=== PATIENT | female | born 1960 | race Caucasian/White ===

== ENCOUNTER 2020-12-30 11:04 | Emergency (ER) | payer BC ==
[2020-12-30 12:25] LABS: Absolute Lymphocytes (CBC) 1.4 K/uL (0.7-4.9); Basophils % 0.3 % (0-1.3); Hematocrit 37.9 % (36.0-45.0); MPV 7.8 fL (7.6-11.3); RBC Red Blood Cell Count 4.02 M/uL (3.86-4.86)
[2020-12-30 12:46] LABS: ALT/SGPT 35 U/L (12-78); AST/SGOT 17 U/L (15-37); Albumin 4.2 g/dL (3.4-5.0); Alkaline Phosphatase 64 U/L (45-117); BUN Blood Urea Nitrogen 16 mg/dL (7-18); Bicarbonate 26 mmol/L (21-32); Bilirubin Direct < 0.1 mg/dL (0-0.2); Bilirubin Total 0.3 mg/dL (0.2-1.0); Glucose Level 95 mg/dL (74-106); Lipase 142 U/L (73-393); Potassium 4.3 mmol/L (3.5-5.1); Protein, Total 7.1 g/dL (6.4-8.2); Sodium Level 138 mmol/L (136-145)
[2020-12-30 13:14] LABS: Urine Blood Negative (Negative); Urine Glucose Negative (Negative); Urine Protein Negative (Negative); Urine Specific Gravity <=1.005 (1.005-1.030); Urine pH 6.5 (5.0-7.0)
--- NOTE | 2020-12-30 13:28 | RAD REPORT ---
EXAM DESCRIPTION: CT - Abdomen Pelvis W Contrast - 12/30/2020 1:11 pm CLINICAL HISTORY: RLQ PAIN COMPARISON: No comparisons TECHNIQUE: Biphasic, helical CT imaging of the abdomen and pelvis was performed following 100 ml non -ionic IV contrast. No oral contrast administered. All CT scans are performed using dose optimization technique as appropriate and may include automated exposure control or mA/KV adjustment according to patient size. FINDINGS: No acute lung base finding. Large hiatal hernia is present with 50-60% of the stomach intr athoracic. No gastric wall thickening or mass suspected. The liver, spleen, and pancreas show no suspicious findings. Gallbladder and biliary tree are also wi thout suspicious finding. Mild bilateral hydronephrosis is present secondary to a subsequently detailed finding. No obstructing calculi seen. Renal function is symmetric but slightly delayed. No pyelonephritis or solid mass lesi on. No bladder abnormalities. No adrenal abnormalities. History does not indicate hysterectomy. Left hip prosthesis creates substantial spray artifact across the pelvic floor. Soft tissue mass is seen typical in size and shape for the uterus in a patient thi s age. A small atrophic left ovary is identified. No normal right ovary seen. There is a 13 x 11 cent imeter lobulated cystic mass filling the midline pelvis. This has thickened septation and areas of en hancing mural nodule. This could be a single entity from either ovary or the confluence of bilateral ovarian cystic masses. There is a small amount of associated free fluid. No free air or pneumatosis. Moderate stool volume seen throughout nondilated colon. No appendicitis findings. Diverticulosis is p resent on the left. No acute stomach or small bowel finding. No hernia or bulky lymphadenopathy find ings. No suspicious bony findings. IMPRESSION: A 13 x 11 cm lobulated cystic mass fills the pelvis. The mass has multiple septations th at enhance with areas of mural nodularity. Right ovary is not identifiable. Small atrophic left ovary is seen. 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 Cystadenoma is still possible. Mild bilateral hydronephrosis with only minimal if any delayed renal function. This is believed to be due to extrinsic compression by the large cystic pelvic mass. Large hiatal hernia with 50-60% of the stomach intrathoracic. No appendicitis, abscess, free air or other surgically emergent finding.
[2020-12-30 14:05] LABS: Urine Bacteria 20-50 /HPF (<20); Urine RBC <5 /HPF (NONE SEEN)
--- NOTE | 2020-12-30 14:16 | EDPHYS ---
Physician Documentation [facility] Name: Laura Britt Age: 60 yrs Sex: Female : 1960 Arrival Date: 12/30/2020 Time: 11:08 Bed Waiting Private MD: ED Physician Melo Miranda HPI: 12/30 11:59 This 60 yrs old Female presents to ER via Ambulatory with complaints of pm1 Abdominal Pain. 11:59 The patient presents with abdominal pain right lower quadrant. Onset: The pm1 symptoms/episode began/occurred today. The symptoms do not radiate. Associated signs and symptoms: Pertinent positives: nausea, Dizziness dizziness, Pertinent negatives: nausea, vomiting, and diarrhea, chest pain, shortness of breath. The symptoms are described as sharp. Modifying factors: The symptoms are alleviated by nothing, the symptoms are aggravated by nothing. Severity of pain: in the emergency department the pain has resolved. The patient has not experienced similar symptoms in the past. The patient has not recently seen a physician. Patient presents with right lower quadrant pain 2 episodes that started this morning. Patient was standing in line at the bank and started feeling sharp right upper quadrant pain, with nausea and dizziness. No vomiting no diarrhea. On the way here to the ER patient with another episode of abdominal pain that has resolved patient is currently without any pain or any other symptoms. Historical: - Allergies: 11:51 Benadryl; ss - Home Meds: 11:51 None [Active]; ss - PMHx: 11:51 None; ss - PSHx: 11:51 Tonsillectomy; L hip; ss - Immunization history:: Adult Immunizations up to date, Client reports having NOT received the Covid vaccine. - Social history:: Smoking status: Patient reports the use of cigarette tobacco products, smokes one-half pack cigarettes per day. ROS: 11:59 Constitutional: Negative for fever, chills, and weight loss, Cardiovascular: Negative pm1 for chest pain, palpitations, and edema, Respiratory: Negative for shortness of breath, cough, wheezing, and pleuritic chest pain. 11:59 Back: Negative for injury and pain, : Negative for injury, bleeding, discharge, and swelling, MS/Extremity: Negative for injury and deformity, Skin: Negative for injury, rash, and discoloration, Neuro: Negative for headache, weakness, numbness, tingling, and seizure. 11:59 Abdomen/GI: Positive for abdominal pain, Negative for nausea, vomiting, and diarrhea, constipation. 11:59 All other systems are negative. Exam: 11:59 Constitutional: This is a well developed, well nourished patient who is awake, alert, pm1 and in no acute distress. Head/Face: Normocephalic, atraumatic. 11:59 Back: No spinal tenderness. No costovertebral tenderness. Full range of motion. Skin: Warm, dry with normal turgor. Normal color with no rashes, no lesions, and no evidence of cellulitis. MS/ Extremity: Pulses equal, no cyanosis. Neurovascular intact. Full, normal range of motion. 11:59 Cardiovascular: Exam negative for acute changes, Rate: normal, Rhythm: regular, Pulses: no pulse deficits are appreciated. 11:59 Respiratory: Exam negative for acute changes, respiratory distress, shortness of breath. 11:59 Abdomen/GI: Inspection: abdomen appears normal, Palpation: abdomen is soft and non-tender, in all quadrants. 11:59 Neuro: Exam negative for acute changes, Motor: is normal, Gait: is steady, at a normal pace, without difficulty. Vital Signs: 11:49 BP 145 / 96; Pulse 72; Resp 16; Temp 98.0(TE); Pulse Ox 100% on R/A; Weight 52.16 kg; ss Height 5 ft. 7 in. (170.18 cm); Pain 0/10; 14:33 Pulse 92; Resp 16; Temp 97.2(TE); Pulse Ox 98% on R/A; Pain 0/10; ss 11:49 Body Mass Index 18.01 (52.16 kg, 170.18 cm) MDM: 11:59 Patient medically screened. pm1 12:06 Data reviewed: vital signs. Data interpreted: Pulse oximetry: on room air is 100 %. pm1 Interpretation: normal. 14:11 Counseling: I had a detailed discussion with the patient and/or guardian regarding: the pm1 historical points, exam findings, and any diagnostic results supporting the discharge/admit diagnosis, lab results, radiology results, the need for outpatient follow up, an OB/Gyne specialist, to return to the emergency department if symptoms worsen or persist or if there are any questions or concerns that arise at home. 14:33 ED course: Reports seeing a travel registered nurse oncology roughly 1-1/2 to 2 years ago and being told pm1 that she may have a mass the size of a lemon and right lower quadrant. Was informed to observe for pain in about 1 months timeframe, and follow-up at that time to determine if surgery would be necessary to remove the mass versus getting a biopsy. Biopsy was not considered an option due to the lobulated appearance. Was concerned rupture could cause spreading of of metastasis if it was present. After informing the patient of the CT results, she said she would follow-up with her travel registered nurse oncology for further evaluation and treatment. 12/30 11:52 Order name: Basic Metabolic Panel; Complete Time: 13:06 ss 12/30 11:52 Order name: CBC with Diff; Complete Time: 12:29 ss 12/30 11:52 Order name: Hepatic Function; Complete Time: 13:06 ss 12/30 11:52 Order name: Lipase; Complete Time: 13:06 ss 12/30 11:57 Order name: Urine Microscopic Only; Complete Time: 14:11 pm1 12/30 13:14 Order name: Urine Dipstick-Ancillary; Complete Time: 13:17 EDMS 12/30 11:52 Order name: IV Saline Lock; Complete Time: 12:09 ss 12/30 11:52 Order name: Labs collected and sent; Complete Time: 12:09 ss 12/30 11:57 Order name: CT Abd/Pelvis - IV Contrast Only; Complete Time: 14:11 pm1 12/30 11:57 Order name: Urine Dipstick-Ancillary (obtain specimen) pm1 12/30 14:06 Order name: Urine Culture EDMS Administered Medications: No medications were administered Disposition Summary: 12/30/20 14:16 Discharge Ordered Location: Home pm1 Problem: new pm1 Symptoms: have improved pm1 Condition: Stable pm1 Diagnosis - Right ovarian mass pm1 - Cystic pelvic mass pm1 - UTI/ Urinary tract infection, site not specified pm1 Followup: pm1 - With: Emergency Department - When: As needed - Reason: Worsening of condition Followup: pm1 - With: Private Physician - When: 2 - 3 days - Reason: Recheck today's complaints, Continuance of care, Re-evaluation by your physician Followup: pm1 - With: Doris Rey MD - When: 2 - 3 days - Reason: Recheck today's complaints, Continuance of care, Re-evaluation by your physician Discharge Instructions: - Discharge Summary Sheet pm1 - Urinary Tract Infection, Adult pm1 - Pelvic Mass, Female pm1 Forms: - Medication Reconciliation Form pm1 - Thank You Letter pm1 - Antibiotic Education pm1 - Prescription Opioid Use pm1 Prescriptions: - Bactrim DS 800-160 mg Oral Tablet - take 1 tablet by ORAL route every 12 hours for 10 days; 20 tablet; Refills: 0, pm1 Product Selection Permitted Addendum: 12/31/2020 18:43 Co-signature as Attending Physician, Melo Miranda MD I agree with the assessment and t w4 plan of care. Signatures: Dispatcher [employer] Michelle Erazo, DASHAWN RN Santos Antunez, CREDIT COLLECTIONS CLERK CREDIT COLLECTIONS CLERK pm1 Melo Miranda MD MD tw4
--- NOTE | 2020-12-30 14:16 | ER ---
Nurse's Notes [facility] Name: Laura Britt Age: 60 yrs Sex: Female : 1960 Arrival Date: 12/30/2020 Time: 11:08 Bed Waiting Private MD: Diagnosis: Cystic pelvic mass;UTI/ Urinary tract infection, site not specified Presentation: 12/30 11:49 Chief complaint: Patient states: R lower quadrant pain that began this morning, is ss episodic. Denies pain at this time. Coronavirus screen: Client denies travel out of the [place] in the last 14 days. Ebola Screen: Patient denies exposure to infectious person. Patient denies travel to an Ebola-affected area in the 21 days before illness onset. Initial Sepsis Screen: Does the patient meet any 2 criteria? No. Patient's initial sepsis screen is negative. Does the patient have a suspected source of infection? No. Patient's initial sepsis screen is negative. Risk Assessment: Do you want to hurt yourself or someone else? Patient reports no desire to harm self or others. Onset of symptoms was December 30, 2020. 11:49 Method Of Arrival: Ambulatory ss 11:49 Acuity: ADIS 3 ss Historical: - Allergies: 11:51 Benadryl; ss - Home Meds: 11:51 None [Active]; ss - PMHx: 11:51 None; ss - PSHx: 11:51 Tonsillectomy; L hip; ss - Immunization history:: Adult Immunizations up to date, Client reports having NOT received the Covid vaccine. - Social history:: Smoking status: Patient reports the use of cigarette tobacco products, smokes one-half pack cigarettes per day. Screenin:32 Abuse screen: Denies threats or abuse. Denies injuries from another. Nutritional ss screening: No deficits noted. Tuberculosis screening: Never had TB. Fall Risk None identified. Assessment: 14:32 Reassessment: Patient appears in no apparent distress at this time. Patient and/or ss family updated on plan of care and expected duration. Pain level reassessed. Patient is alert, oriented x 3, equal unlabored respirations, skin warm/dry/pink. Patient denies pain at this time. Patient states feeling better. Patient states symptoms have improved. Neuro: Level of Consciousness is awake, alert, obeys commands, Oriented to person, place, time, situation. Respiratory: Airway is patent Respiratory effort is even, unlabored, Respiratory pattern is regular, symmetrical. GI: Abdomen is non-distended, Bowel sounds present X 4 quads. Abd is non tender X 4 quads. : No signs and/or symptoms were reported regarding the genitourinary system. Denies burning with urination, urinary frequency. EENT: Oral mucosa is moist. Derm: Skin is intact, is healthy with good turgor, Skin is dry, Skin is pink, warm \T\ dry. normal. Vital Signs: 11:49 BP 145 / 96; Pulse 72; Resp 16; Temp 98.0(TE); Pulse Ox 100% on R/A; Weight 52.16 kg; ss Height 5 ft. 7 in. (170.18 cm); Pain 0/10; 14:33 Pulse 92; Resp 16; Temp 97.2(TE); Pulse Ox 98% on R/A; Pain 0/10; ss 11:49 Body Mass Index 18.01 (52.16 kg, 170.18 cm) ED Course: 11:08 Patient arrived in ED. mr 11:51 Triage completed. ss 11:51 Arm band placed on left wrist. ss 11:56 Santos Whitley NP is PHCP. pm1 11:56 Melo Miranda MD is Attending Physician. pm1 12:10 Inserted saline lock: 22 gauge in right antecubital area, using aseptic technique. ss Blood collected. 13:11 CT Abd/Pelvis - IV Contrast Only In Process Unspecified. EDMS 14:18 Doris Rey MD is Referral Physician. pm1 14:32 Patient has correct armband on for positive identification. Bed in low position. Call ss light in reach. 14:32 No provider procedures requiring assistance completed. ss 14:33 IV discontinued, intact, bleeding controlled, No redness/swelling at site. Pressure ss dressing applied. Administered Medications: No medications were administered Outcome: 14:16 Discharge ordered by . pm1 14:43 Discharged to home ambulatory. ss 14:43 Condition: good 14:43 Discharge instructions given to patient, Instructed on discharge instructions, follow up and referral plans. medication usage, Demonstrated understanding of instructions, follow-up care, medications, Prescriptions given X 1. 14:43 Patient left the ED. ss Signatures: Dispatcher [employer] Katina Pérez mr Michelle Severino RN RN ss Santos Whitley, BUDGET RECORD CLERK BUDGET RECORD CLERK pm1
[2020-12-30 15:06] VITALS: BP 145/96
[2020-12-30 15:08] VITALS: TEMP 97.2; O2SAT 98
== END 2020-12-30 14:43 | disposition home or self-care (01) ==
LOC: ER 11:04
DX: N39.0 Urinary tract infection, site not specified (principal); N83.8 Other noninflammatory disorders of ovary, fallopian tube and broad ligament; N94.89 Other specified conditions associated with female genital organs and menstrual cycle; F17.210 Nicotine dependence, cigarettes, uncomplicated; Z88.8 Allergy status to other drugs, medicaments and biological substances
CPT/HCPCS: 87088; 85025; 87086; 80048; 36415; 80076; 83690; 74177; 99284; Q9967; 81003; 81015